=== PATIENT | male | born 1935 | race Caucasian/White ===

== ENCOUNTER 2017-01-30 06:20 | Day surgery (SDC) | payer OTHER ==
[2017-01-22 13:31] VITALS: BMI 34.2
[2017-01-30] MEDS ORDERED: FLURBIPROFEN 0.03% OPHTH SOLN 2.5 ML BOTTLE ONE (06:37)
[2017-01-30] MEDS ORDERED: PHENYLEPHRINE 2.5% OPHTH SOLN 15 ML BOTTLE ONE (06:38)
[2017-01-30] MEDS ORDERED: TROPICAMIDE 1% OPHTH SOLN 15 ML BOTTLE ONE (06:38)
[2017-01-30] MEDS ORDERED: CYCLOPENTOLATE HCL 1% OPHTH SOLN 2 ML BOTTLE ONE (06:38)
[2017-01-30] MEDS ORDERED: GENTAMICIN SULFATE 0.3% OPHTHALMIC (EYE DROPS) 5ML BOTTLE ONE (06:38)
[2017-01-30] MEDS: FLURBIPROFEN 0.03% OPHTH SOLN 2.5 ML BOTTLE OS SCH ×6 (07:00→07:25)
[2017-01-30] MEDS: PHENYLEPHRINE 2.5% OPHTH SOLN 15 ML BOTTLE OS SCH ×6 (07:00→07:25)
[2017-01-30] MEDS: CYCLOPENTOLATE HCL 1% OPHTH SOLN 2 ML BOTTLE OS SCH ×6 (07:00→07:25)
[2017-01-30] MEDS: GENTAMICIN SULFATE 0.3% OPHTHALMIC (EYE DROPS) 5ML BOTTLE OS SCH ×6 (07:00→07:25)
[2017-01-30] MEDS: TROPICAMIDE 1% OPHTH SOLN 15 ML BOTTLE OS SCH ×6 (07:00→07:25)
[2017-01-30] MEDS ORDERED: ePHEDrine SULFATE 50 MG/1 ML AMPULE ONE (07:15)
[2017-01-30] MEDS ORDERED: SUCCINYLCHOLINE CHLORIDE 200 MG/10 ML VIAL ONE (07:16)
[2017-01-30] MEDS ORDERED: PROPOFOL 20 ML ONE ×4 (07:16)
[2017-01-30] MEDS ORDERED: NEO/POLYMYX B SULF/DEXAMETH OPHTHALMIC OINTMENT 3.5 GM ONE (07:30)
[2017-01-30] MEDS ORDERED: BACITRACIN/POLYMYXIN OPH OINT 3.5 GM TUBE ONE (07:30)
[2017-01-30] MEDS ORDERED: BETAXOLOL HCL 0.25% OPHTHALMIC 10 ML DROPSBTL ONE (07:31)
[2017-01-30] MEDS ORDERED: LIDOCAINE HCL/PF 2% SDV 5ML VIAL ONE (07:31)
[2017-01-30] MEDS ORDERED: LIDOCAINE 1% P/F 10 MG/ML VIAL ONE (07:31)
[2017-01-30] MEDS ORDERED: BSS (NA/CA/MG/K) BALANCED SALT SOLUTION OPHTH SOLN 15 ML BOTTLE ONE (07:31)
[2017-01-30] MEDS ORDERED: CARBACHOL 0.01% INTRA-OCULAR 1.5 ML VIAL ONE (07:32)
[2017-01-30] MEDS ORDERED: LIDOCAINE HCL 2% JELLY 10 ML CARTRIDGE ONE (07:32)
[2017-01-30] MEDS ORDERED: NEO/POLYMYX B SULF/DEXAMETH OPHTHALMIC 5ML BOTTLE ONE (07:32)
[2017-01-30] MEDS ORDERED: ACETAMINOPHEN 325 MG TABLET (FP) PO PRN (09:43)
[2017-01-30 09:53] VITALS: PULSE 64; TEMP 98.8
[2017-01-30 10:31] VITALS: BP 143/73
--- NOTE | 2017-01-30 13:15 | OP ---
DATE OF OPERATION: 01/30/2017 PREOPERATIVE DIAGNOSIS: Cataract, left eye. POSTOPERATIVE DIAGNOSIS: Cataract, left eye. PROCEDURE: Cataract extraction via phacoemulsification with insertion of posterior chamber lens implant, left eye. SURGEON: Ken Justice MD SENIOR NET C DEVELOPER: Meenakshi Charles MD ANESTHESIA: Regional with sedation. COMPLICATIONS: None. ESTIMATED BLOOD LOSS: Less than 1 mL. SPECIMENS: None. 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 The patient was identified in the holding area. After all risks, benefits, and alternatives were explained to the patient, informed consent was obtained. The left eye was marked with a marking pen. The patient then entered the operating room on an eye stretcher. After a formal timeout was performed, a 3-mL injection of equal parts 2% lidocaine with epinephrine and 0.5% Marcaine was given around the left eye. Left eye was then prepped and draped in usual sterile fashion. Eyelid speculum was placed onto the eyelids of the left eye. 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 An inferotemporal paracentesis incision was then created using a 15-degree blade. Five equally spaced additional paracentesis incisions were created using the 15-degree blade, equally spaced apart. Five individual iris hooks were each placed individually through each of the 5 created paracentesis incisions around the left eye. The iris was then captured using each of the individual iris hooks and dilated to around 6 mm. Then, an air bubble was injected into the anterior chamber. Trypan blue was then injected to stain the anterior capsule. All trypan blue was then washed out of the eye using balanced saline solution. Viscoelastic was then injected into the anterior chamber. A 2.4-mm keratome blade was then used to make a superotemporal incision. A continuous curvilinear capsulorrhexis was then created using bent cystotome and Utrata forceps. Hydrodissection was performed using balanced saline solution on a cannula. Phacoemulsification was then introduced to disassemble and remove the nucleus in its entirety. Irrigation/aspiration was then used to remove any remaining cortical material from the eye. The capsular bag was then refilled using Viscoelastic. An Stefan model [id number] with a power of 22.5 diopters, serial number [id number], was inspected and found to be defect free and injected into the capsular bag. Irrigation/aspiration was then used to remove any remaining viscoelastic from the eye. The anterior chamber was then reformed using balanced saline solution. All iris hooks, all 5 of them, were removed completely from the eye. Intracameral injections of Miochol and Miostat were then given, and the pupil came down and was round. All wounds were hydrated with balanced saline solution and noted to be watertight. The anterior chamber was deep. The lens was perfectly centered in the capsular bag. There was a red reflex present, and the pressure was adequate. Topical antibiotic eye drops and ointment were then administered to the left eye. The left eye was then patched and shielded. The patient tolerated the procedure well and left the operating room in stable condition to follow up in the eye clinic tomorrow morning at 9:00. KEN JUSTICE M.D. [id number]
== END 2017-01-30 10:20 | disposition home or self-care (01) ==
LOC: FASU 06:20
PROVIDERS: ATTEND Ophthalmology
PROC: 08RK3JZ Replacement of Left Lens with Synthetic Substitute, Percutaneous Approach (ICD-10-PCS; principal; 2017-01-30 08:36)
DX: H26.8 Other specified cataract (principal)